=== PATIENT | female | born 2000 | race Two or more races ===

== ENCOUNTER → 2024-10-07 | Outpatient (CLI) | payer OTHER | LOC: M RAD 13:31 | PROVIDERS: ATTEND Physician Assistant | DX: S60.941A Unspecified superficial injury of left index finger, initial encounter (principal); Y93.9 Activity, unspecified; Y92.9 Unspecified place or not applicable ==

== ENCOUNTER 2025-04-07 09:37 | Inpatient (IN) | payer OTHER ==
[~2025-04-07] VITALS: Ht 160 cm; Wt 70.9 kg
[2025-04-07 11:14] LABS: PLATELET COUNT, AUTOMATED 334 10^3/uL (150-450)
[2025-04-07 11:30] LABS: AMPHETAMINES LEVEL URINE NEGATIVE (NEGATIVE); BARBITURATES URINE NEGATIVE (NEGATIVE); BENZODIAZEPINES URINE NEGATIVE (NEGATIVE); COCAINE METABOLITE URINE NEGATIVE (NEGATIVE); METHADONE URINE NEGATIVE (NEGATIVE); OPIATES URINE NEGATIVE (NEGATIVE); PHENCYCLIDINE URINE NEGATIVE (NEGATIVE)
[2025-04-07 11:37] LABS: CANNABINOIDS URINE POSITIVE (NEGATIVE)
[2025-04-07 11:50] LABS: ALT/SGPT 13 U/L (7.0-40); AST/SGOT 12 U/L (<34); CALCIUM LEVEL 9.8 MG/DL (8.5-10.1); CARBON DIOXIDE LEVEL 23 MMOL/L (20-31); CHLORIDE LEVEL 106 MMOL/L (98-107); CREATININE FOR GFR 0.62 MG/DL (0.55-1.30); GLOMERULAR FILTRATION RATE > 90.0 (>60); POTASSIUM SERUM 3.9 MMOL/L (3.5-5.1); SALICYLATE LEVEL < 3.0 MG/DL (<30); SODIUM LEVEL 139 MMOL/L (136-145)
[2025-04-07 11:52] LABS: ETHYL ALCOHOL (ETHANOL) < 0.003 % (0.000-0.010)
[2025-04-07 11:54] LABS: HCG, SERUM QUALITATIVE NEGATIVE (NEGATIVE)
[2025-04-07] MEDS ORDERED: CYAN100049 PO (13:09)
[2025-04-07] MEDS ORDERED: FERR1TAB8 PO (13:09)
[2025-04-07] MEDS ORDERED: HOME MED LIST COMPLETE! XX SCH (13:10)
[2025-04-07] MEDS ORDERED: MAALOX 30 ML SUSP *UDC PO PRN (13:30)
[2025-04-07] MEDS ORDERED: IBUPROFEN 400 MG TAB PO PRN (13:30)
[2025-04-07] MEDS ORDERED: MOM 30 ML SUSPENSION UDC PO PRN (13:30)
[2025-04-07 15:20] VITALS: BP 129/75; TEMP 97.6; O2SAT 99
[2025-04-07] MEDS: ACETAMINOPHEN 325 MG TAB PO PRN (16:02)
[2025-04-07] MEDS: traZODone 50 MG TAB PO PRN (20:14)
[2025-04-08 06:34] VITALS: BP 122/66; TEMP 98; O2SAT 100
[2025-04-08] MEDS: FLUoxetine 20 MG CAP PO SCH (10:32)
[2025-04-08 15:36] VITALS: BP 111/81; TEMP 97.7; O2SAT 100
[2025-04-08] MEDS: FLUZONE VACCINE TRI PF(25-26) 0.5ML SYRINGE IM.IMMUN ONE (16:05)
[2025-04-09 06:41] VITALS: BP 109/58; TEMP 97.2
[2025-04-09 09:01] LABS: PLATELET COUNT, AUTOMATED 326 10^3/uL (150-450)
[2025-04-09 09:32] LABS: IRON (FE) 59.0 UG/DL (50-170); PERCENT SATURATION 25.8 % (13.2-45.0)
[2025-04-09 09:34] LABS: VITAMIN B12 LEVEL 1974.0 PG/ML (211-911)
[2025-04-09] MEDS ORDERED: TRAZ-252 PO (13:19)
[2025-04-09] MEDS ORDERED: HYDR-3363 PO (13:19)
[2025-04-09] MEDS ORDERED: FLUO-365 PO (13:19)
== END 2025-04-09 14:10 | disposition home or self-care (01) | DRG 755 ==
LOC: M ED 09:37 → M ED INP 13:30 → M PSY 15:16
PROVIDERS: ADMIT General Practice; ATTEND General Practice
DX: F43.10 Post-traumatic stress disorder, unspecified (principal); Z91.148 Patient's other noncompliance with medication regimen for other reason; R45.851 Suicidal ideations; F41.9 Anxiety disorder, unspecified; F12.90 Cannabis use, unspecified, uncomplicated; Z91.410 Personal history of adult physical and sexual abuse; Z62.810 Personal history of physical and sexual abuse in childhood; Z88.0 Allergy status to penicillin; Z79.899 Other long term (current) drug therapy

== ENCOUNTER 2025-05-13 15:00 | Emergency (ER) | payer OTHER ==
[~2025-05-13] VITALS: Ht 157.5 cm; Wt 65.7 kg
[~2025-05-13 15:00] MED LIST: CYAN100049 PO; FERR1TAB8 PO; FLUO-365 PO; HYDR-3363 PO; TRAZ-252 PO
[2025-05-13 15:02] VITALS: TEMP 98
[2025-05-13 15:46] LABS: BASO # 0.1 10^3/uL (0.0-0.2); BASO % 0.4 % (0.0-1.0); EOS # 0.1 10^3/uL (0.0-0.5); EOS % 0.5 % (0.0-3.0); LYMPH # 2.1 10^3/uL (1.5-5.0); LYMPH % 14.2 % (24.0-44.0); MONO # 0.9 10^3/uL (0.0-0.8); MONO % 6.0 % (2.0-8.0); NEUTROPHILS # 11.7 10^3/uL (1.5-8.5); NEUTROPHILS % 78.6 % (36.0-66.0); PLATELET COUNT, AUTOMATED 367 10^3/uL (150-450)
[2025-05-13 16:12] LABS: CK-MB VALUE MASS < 1.0 NG/ML (<3.6)
[2025-05-13 16:14] LABS: CALCIUM LEVEL 9.9 MG/DL (8.5-10.1); CARBON DIOXIDE LEVEL 20 MMOL/L (20-31); CHLORIDE LEVEL 107 MMOL/L (98-107); CPK CREATINE PHOSPHOKINASE 36 U/L (34-145); CREATININE FOR GFR 0.67 MG/DL (0.55-1.30); GLOMERULAR FILTRATION RATE > 90.0 (>60); POTASSIUM SERUM 3.5 MMOL/L (3.5-5.1); SODIUM LEVEL 139 MMOL/L (136-145)
[2025-05-13 17:23] VITALS: BP 128/83; O2SAT 99
== END 2025-05-13 17:24 | disposition home or self-care (01) ==
LOC: M ED 15:00
DX: F41.0 Panic disorder [episodic paroxysmal anxiety] (principal); T40.715A Adverse effect of cannabis, initial encounter; F17.200 Nicotine dependence, unspecified, uncomplicated; F19.10 Other psychoactive substance abuse, uncomplicated; Z88.2 Allergy status to sulfonamides; Z88.0 Allergy status to penicillin; Z88.1 Allergy status to other antibiotic agents; Z79.899 Other long term (current) drug therapy

== ENCOUNTER 2025-05-19 05:53 | Inpatient (IN) | payer OTHER ==
[~2025-05-19] VITALS: Ht 162.6 cm; Wt 65.5 kg
[2025-05-19 06:44] LABS: BASO # 0.1 10^3/uL (0.0-0.2); BASO % 0.5 % (0.0-1.0); EOS # 0.1 10^3/uL (0.0-0.5); EOS % 0.8 % (0.0-3.0); LYMPH # 2.8 10^3/uL (1.5-5.0); LYMPH % 17.6 % (24.0-44.0); MONO # 1.0 10^3/uL (0.0-0.8); MONO % 6.4 % (2.0-8.0); NEUTROPHILS # 11.9 10^3/uL (1.5-8.5); NEUTROPHILS % 74.1 % (36.0-66.0); PLATELET COUNT, AUTOMATED 348 10^3/uL (150-450)
[2025-05-19 07:03] LABS: CK-MB VALUE MASS < 1.0 NG/ML (<3.6)
[2025-05-19 07:05] LABS: CALCIUM LEVEL 9.6 MG/DL (8.5-10.1); CARBON DIOXIDE LEVEL 19 MMOL/L (20-31); CHLORIDE LEVEL 107 MMOL/L (98-107); CPK CREATINE PHOSPHOKINASE 35 U/L (34-145); CREATININE FOR GFR 0.65 MG/DL (0.55-1.30); GLOMERULAR FILTRATION RATE > 90.0 (>60); POTASSIUM SERUM 3.7 MMOL/L (3.5-5.1); SODIUM LEVEL 140 MMOL/L (136-145)
[2025-05-19 07:42] LABS: AMORPHOUS SEDIMENT SMALL (NEGATIVE); APPEARANCE, URINE HAZY (CLEAR); BACTERIA, URINE AUTO 1+ (NEGATIVE); BILIRUBIN, URINE AUTO NEGATIVE (NEGATIVE); BLOOD, URINE BLOOD NEGATIVE (NEGATIVE); GLUCOSE, URINE (UA) AUTO NEGATIVE (NEGATIVE); KETONE, URINE AUTO TRACE mg/dL (NEGATIVE); LEUKOCYTE ESTERASE, URINE AUTO NEGATIVE (NEGATIVE); MUCUS, URINE SMALL (NEGATIVE); NITRITE, URINE AUTO NEGATIVE (NEGATIVE); PROTEIN, URINE AUTO NEGATIVE (NEGATIVE); RBC, URINE AUTO 1 /HPF (0-3); SPECIFIC GRAVITY URINE AUTO 1.023 (1.002-1.035); SQUAMOUS EPITHELIAL CELL UR AU 11 /HPF (0-6); UROBILINOGEN, URINE AUTO 2.0 mg/dL (0.0-2.0); WBC, URINE AUTO 1 /HPF (0-3)
[2025-05-19 08:01] LABS: HCG, SERUM QUALITATIVE NEGATIVE (NEGATIVE)
[2025-05-19 08:37] LABS: Trichomonas vaginalis (AMP) NOT DETECTED (NEGATIVE)
[2025-05-19 09:01] LABS: GC DNA AMPLIFICATION NEGATIVE (NEGATIVE)
[2025-05-19] MEDS ORDERED: TRAZ1TAB11 PO (13:18)
[2025-05-19] MEDS ORDERED: FLUO-365 PO (13:18)
[2025-05-19] MEDS ORDERED: HOME MED LIST COMPLETE! XX SCH (13:20)
[2025-05-19] MEDS ORDERED: IBUPROFEN 400 MG TAB PO PRN (14:45)
[2025-05-19] MEDS ORDERED: ACETAMINOPHEN 325 MG TAB PO PRN (14:45)
[2025-05-19] MEDS ORDERED: MAALOX 30 ML SUSP *UDC PO PRN (14:45)
[2025-05-19] MEDS ORDERED: traZODone 50 MG TAB PO PRN (14:45)
[2025-05-19 15:40] VITALS: BP 132/86; TEMP 97.7; O2SAT 98
[2025-05-20 06:33] VITALS: BP 136/62; TEMP 97; O2SAT 99
[2025-05-20] MEDS: CIPROFLOXACIN 250 MG TAB PO SCH (11:44)
[2025-05-20] MEDS: CYANOCOBALAMIN 500 MCG TAB PO SCH (11:44)
[2025-05-20 13:36] LABS: HEPATITIS C VIRUS ABY INDEX < 0.02 INDEX (<0.8); HIV 1&2 SCREEN NEGATIVE (NEGATIVE)
[2025-05-20 15:14] VITALS: BP 134/82; TEMP 98
[2025-05-20 15:52] LABS: KETONE, URINE AUTO RFX NEGATIVE (NEGATIVE); LEUKOCYTE ESTERASE UR AUTO RFX NEGATIVE (NEGATIVE); MUCUS, URINE RFX SMALL (NEGATIVE); NITRITE, URINE AUTO RFX NEGATIVE (NEGATIVE); RBC, URINE AUTO RFX 0 /HPF (0-3); SQUAM EPITHELIAL CELL UR AURFX 2 /HPF (0-6); WBC, URINE AUTO RFX 1 /HPF (0-3)
[2025-05-20 20:09] VITALS: BP 128/80
[2025-05-20] MEDS: PRAZOSIN 1 MG CAP PO SCH (20:09)
[2025-05-21] MEDS: MOM 30 ML SUSPENSION UDC PO PRN (05:05)
[2025-05-21 06:38] VITALS: BP 118/76; TEMP 97.6; O2SAT 99
[2025-05-21] MEDS: FERROUS SULFATE 325 MG TAB PO SCH (09:10)
[2025-05-21] MEDS ORDERED: PRAZ1CAP PO (11:34)
== END 2025-05-21 12:37 | disposition home or self-care (01) | DRG 755 ==
LOC: M ED 05:53 → M ED INP 14:42 → M PSY 15:57
PROVIDERS: ADMIT General Practice; ATTEND General Practice
DX: F43.10 Post-traumatic stress disorder, unspecified (principal); F41.0 Panic disorder [episodic paroxysmal anxiety]; F12.90 Cannabis use, unspecified, uncomplicated; F60.89 Other specific personality disorders; Z62.810 Personal history of physical and sexual abuse in childhood; R45.851 Suicidal ideations; Z88.0 Allergy status to penicillin; Z88.2 Allergy status to sulfonamides; Z88.8 Allergy status to other drugs, medicaments and biological substances; D72.829 Elevated white blood cell count, unspecified; D64.9 Anemia, unspecified; Z79.899 Other long term (current) drug therapy; R10.24 Suprapubic pain